=== PATIENT | female | born 1980 | race American Indian/Alaskan Native ===

== ENCOUNTER 2016-11-30 11:43 | Emergency (ER) | payer SELFPAY ==
[2016-11-30 12:36] LABS: Eosinophils % (Auto) 2.8 % (0.0-4.3); Hematocrit 31.4 % (30.3-42.9); Hemoglobin 10.2 gm/dl (10.1-14.3); Mean Corpuscular HGB Conc 32 % (30-34); Mean Corpuscular Hemoglobin 26 pg (28-32); Mean Corpuscular Volume 81 fl (79-97); Platelet Count 411 K/mm3 (140-440); Red Blood Count 3.86 M/mm3 (3.65-5.03); Red Cell Distribution Width 14.2 % (13.2-15.2); White Blood Count 5.9 K/mm3 (4.5-11.0)
[2016-11-30 12:38] LABS: Anion Gap 14 mmol/L; BUN/Creatinine Ratio 11.66; Blood Urea Nitrogen 7 mg/dL (7-17); Calcium 8.8 mg/dL (8.4-10.2); Carbon Dioxide 27 mmol/L (22-30); Chloride 104.3 mmol/L (98-107); Glucose 97 mg/dL (65-100); Potassium 3.9 mmol/L (3.6-5.0); Sodium 141 mmol/L (137-145)
[2016-11-30 12:52] LABS: Creatine Kinase MB 1.1 ng/mL (0.0-4.0)
--- NOTE | 2016-11-30 12:53 | Emergency Department Report ---
Entered by SHAWN REED, acting as scribe for SHAILA CONCEPCION PA. Chief Complaint: High BP Stated Complaint: HBP/LT ARM PAIN - HPI History of Present Illness: 36 y/o female presents c/o tingling in her left arm that started while at work earlier today. Associated Sx include UMANA, but pt denies abd pain, SOB, chest pain or N/V. Pt notes having a high blood pressure at work earlier today. - ROS Review of Systems: as noted in HPI. - Exam Vital Signs: Vital Signs 11/30/16 11:57 Temperature 98.2 F Pulse Rate 81 Respiratory 16 Rate Blood Pressure 129/101 O2 Sat by Pulse 100 Oximetry Physical Exam: General: [36-year-old female] in no acute distress. Well-developed, well- nourished. CV: Regular rate and rhythm. No murmurs rubs or gallops. Lungs: Clear to auscultation bilaterally. Abdomen: No tenderness to palpation. No guarding or rebound tenderness. Normal bowel sounds. Mini Neuro: Alert and oriented 3. MSE screening note: Focused history and physical exam performed. Due to findings the following was ordered: ED Disposition for MSE Condition: Stable This documentation as recorded by the scribe,SHAWN REED,accurately reflects the service I personally performed and the decisions made by ,SHAILA CONCEPCION PA.
[2016-11-30] MEDS ORDERED: FIORICET PO ONE (16:34)
--- NOTE | 2016-11-30 16:45 | Emergency Department Report ---
HPI - General Chief Complaint: High BP Time Seen by Provider: 11/30/16 12:28 - HPI HPI: Room 7 The patient is a 36-year-old female presenting with a chief complaint of headache. The patient states she awakened this morning with a left parietal occipital headache. Patient states she felt nauseous but never vomited. The patient states at work she decided to have her blood pressure checked and was determined to be 171/129 and she was instructed to come to the emergency department. The patient states her blood pressure has improved since she's been in the ED and her headache is improved as well. Patient states she currently feels sleepy and just has a slight headache which she gives a score of 2-3/10 Location: [see above] Duration: Since this morning Quality: Headache Severity: 2-3/10 Modifying factors: [see above] Context: [see above] Mode of transportation: [not driving] ED Past Medical Hx - Past Medical History Previous Medical History?: Yes Hx Asthma: Yes - Surgical History Past Surgical History?: No - Family History Family history: no significant - Social History Smoking Status: Current Some Day Smoker Substance Use Type: None - Medications Home Medications: Home Medications Medication Instructions Recorded Confirmed Last Taken Type Butalb/Acetamin/Caff 50-325-40 2 tab PO Q8HR PRN #10 tablet 11/30/16 Unknown Rx [Fioricet] ED Review of Systems ROS: Stated complaint: HBP/LT ARM PAIN Other details as noted in HPI Comment: All other systems reviewed and negative Constitutional: denies: chills, fever Eyes: denies: eye pain, eye discharge, vision change ENT: denies: ear pain, throat pain Respiratory: denies: cough, shortness of breath, wheezing Cardiovascular: denies: chest pain, palpitations Endocrine: no symptoms reported Gastrointestinal: nausea. denies: vomiting Genitourinary: denies: urgency, dysuria, discharge Musculoskeletal: denies: back pain, joint swelling, arthralgia Skin: denies: rash, lesions Neurological: headache Psychiatric: denies: anxiety, depression Hematological/Lymphatic: denies: easy bleeding, easy bruising Physical Exam - Physical Exam Vital Signs: Vital Signs 11/30/16 11/30/16 11/30/16 11:57 15:40 15:41 Temperature 98.2 F 98.4 F Pulse Rate 81 82 Respiratory 16 17 17 Rate Blood Pressure 129/101 Blood Pressure 133/94 [Left] O2 Sat by Pulse 100 98 98 Oximetry Physical Exam: GENERAL: The patient is well-developed well-nourished female lying on stretcher not appearing to be in acute distress. [] HEENT: Normocephalic. Atraumatic. Extraocular motions are intact. Patient has moist mucous membranes. NECK: Supple. No meningitic signs are noted. Trachea midline CHEST/LUNGS: Clear to auscultation. There is no respiratory distress noted. HEART/CARDIOVASCULAR: Regular. There is no tachycardia. There is no gallop rub or murmur. ABDOMEN: Abdomen is soft, nontender. Patient has normal bowel sounds. There is no abdominal distention. SKIN: There is no rash. There is no edema. There is no diaphoresis. NEURO: The patient is awake, alert, and oriented. The patient is cooperative. The patient has no focal neurologic deficits. The patient has normal speech. 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 MUSCULOSKELETAL: There is no evidence of acute injury. ED Course Vital Signs 11/30/16 11/30/16 11/30/16 11:57 15:40 15:41 Temperature 98.2 F 98.4 F Pulse Rate 81 82 Respiratory 16 17 17 Rate Blood Pressure 129/101 Blood Pressure 133/94 [Left] O2 Sat by Pulse 100 98 98 Oximetry ED Medical Decision Making - Lab Data Result diagrams: 11/30/16 12:10 11/30/16 12:10 Laboratory Tests 11/30/16 11/30/16 11/30/16 12:10 12:10 12:10 WBC 5.9 RBC 3.86 Hgb 10.2 Hct 31.4 MCV 81 MCH 26 L MCHC 32 RDW 14.2 Plt Count 411 Lymph % (Auto) 29.3 [place] % (Auto) 8.4 H Eos % (Auto) 2.8 Baso % (Auto) 1.0 Lymph # 1.7 [place] # 0.5 Eos # 0.2 Baso # 0.1 Seg Neutrophils % 58.5 Seg Neutrophils # 3.5 Sodium 141 Potassium 3.9 Chloride 104.3 Carbon Dioxide 27 Anion Gap 14 BUN 7 Creatinine 0.6 L Estimated GFR > 60 BUN/Creatinine Ratio 11.66 Glucose 97 Calcium 8.8 Total Creatine Kinase CK-MB (CK-2) CK-MB (CK-2) Rel Index Troponin T < 0.010 Lipase Urine HCG, Qual 11/30/16 11/30/16 11/30/16 12:10 15:45 16:51 WBC RBC Hgb Hct MCV MCH MCHC RDW Plt Count Lymph % (Auto) [place] % (Auto) Eos % (Auto) Baso % (Auto) Lymph # [place] # Eos # Baso # Seg Neutrophils % Seg Neutrophils # Sodium Potassium Chloride Carbon Dioxide Anion Gap BUN Creatinine Estimated GFR BUN/Creatinine Ratio Glucose Calcium Total Creatine Kinase 78 CK-MB (CK-2) 1.1 CK-MB (CK-2) Rel Index 1.4 Troponin T < 0.010 Lipase 33 Urine HCG, Qual Negative - EKG Data -: EKG Interpreted by Me EKG shows normal: sinus rhythm Rate: normal - EKG Data When compared to previous EKG there are: previous EKG unavailable Interpretation: nonspecific ST-T wave pablito (T-wave inversion in lead 3) - Radiology Data Radiology results: report reviewed (CT head), image reviewed (CT head) CT head (read radiologist)-no acute intracranial abnormality. - Differential Diagnosis hypertension, hypertensive urgency, headache, migraine, ICH Critical care attestation.: If time is entered above; I have spent that time in minutes in the direct care of this critically ill patient, excluding procedure time. ED Disposition Clinical Impression: Headache Disposition: DISCHARGED TO HOME OR SELFCARE Is pt being admited?: No Does the pt Need Aspirin: No Condition: Stable Instructions: Acute Headache (ED) Additional Instructions: Return to the emergency department immediately should you develop worsening symptoms, fever, inability to tolerate food or liquid or any other concerns. Prescriptions: Butalb/Acetamin/Caff 50-325-40 [Fioricet] 2 tab PO Q8HR PRN #10 tablet PRN Reason: Headache Referrals: KRYSTIN WOMACK MD [Staff Physician] - 3-5 Days (Dr. Womack is a primary physician. Please follow up with him to be established as a patient) Time of Disposition: 18:22
--- NOTE | 2016-11-30 18:11 | Cat Scan Report ---
FINAL REPORT EXAM: CT HEAD/BRAIN WO CON HISTORY: hypertension, left parietal headache TECHNIQUE: CT imaging acquired through the head without intravenous contrast. Transaxial reformations are provided. PRIORS: None. FINDINGS: The ventricles, cisterns and sulci are normal. No intraparenchymal or extra-axial mass, hemorrhage, or mass effect. Guzman and white-matter differentiation is normal. Normal spherical shape of the globes. Paranasal sinuses and mastoid air cells are clear. No skull or facial fracture visualized. Hyperostosis frontalis. IMPRESSION: No acute intracranial abnormality.
[2016-11-30 18:44] VITALS: BP 138/96
== END 2016-11-30 18:45 | disposition home or self-care (01) ==
LOC: ED 11:43
DX: R51 Headache (principal); J45.909 Unspecified asthma, uncomplicated; F17.200 Nicotine dependence, unspecified, uncomplicated
CPT/HCPCS: 36415; 70450; 80048; 81025; 82550; 82553; 83690; 84484; 85025; 93005; 93010